=== PATIENT | female | born 1990 | race Caucasian/White ===

== ENCOUNTER 2018-09-20 19:13 | Emergency (ER) | payer MEDICAID ==
[~2018-09-20] VITALS: Ht 157.5 cm; Wt 99.8 kg
[2018-09-20 19:44] VITALS: BP_SYST 155
[2018-09-20 20:12] LABS: BILIRUBIN,URINE NEGATIVE (NEGATIVE); BLOOD, URINE 1+ (NEGATIVE); CLARITY/URINE CLEAR (CLEAR); COLOR,URINE YELLOW (YELLOW); GLUCOSE,URINE NEGATIVE (NEGATIVE); KETONES,URINE NEGATIVE (NEGATIVE); LEUKOCYTE ESTERASE ,URINE NEGATIVE (NEGATIVE); NITRITE, URINE NEGATIVE (NEGATIVE); PH,URINE 6.5 (5.0-8.0); PROTEIN URINE NEGATIVE (NEGATIVE); UROBILINOGEN,URINE 0.2 (0.2-1.0)
[2018-09-20 20:18] LABS: BASOPHILS % (AUTO) 0.3 % (0.0-2.0); EOSINOPHILS # (AUTO) 0.2 K/uL (0.0-0.4); EOSINOPHILS % (AUTO) 1.7 % (0.0-4.0); HEMATOCRIT 39.7 % (36-48); HEMOGLOBIN 13.4 g/dL (12.0-16.0); MEAN CORPUSCULAR HEMOGLOBIN 30 pg (27-31); MEAN CORPUSCULAR HGB CONC 34 % (32-36); MEAN CORPUSCULAR VOLUME 89 fL (79.0-98.0); MONOCYTES # (AUTO) 0.5 K/uL (0.0-1.0); MONOCYTES % (AUTO) 5.1 % (1.7-9.3); NEUTROPHILS # (AUTO) 6.2 K/uL (1.8-7.7); NEUTROPHILS % (AUTO) 62.9 % (40.0-70.0); PLATELET COUNT (AUTO) 335 K/uL (130-430); RED BLOOD CELL COUNT(AUTO) 4.48 MIL/uL (4.2-6.2); RED CELL DISTRIBUTION WIDTH 12.1 % (9.0-15.0); WHITE BLOOD COUNT (AUTO) 9.9 K/uL (4.8-10.8)
[2018-09-20 20:24] LABS: CALCIUM 8.8 mg/dL (8.4-11.0); CREATININE 0.74 mg/dL (0.55-1.30); POTASSIUM 3.4 mmol/L (3.5-5.1)
[2018-09-20 20:26] LABS: BACTERIA,URINE RARE /HPF (None Seen); MUCUS,URINE None Seen /LPF (None Seen); RBC,URINE 0-3 /HPF (0-3); WBC,URINE 0-3 /HPF (0-3)
[2018-09-20 20:34] LABS: TOTAL BILIRUBIN 0.4 mg/dL (0.0-1.0)
[2018-09-20 20:35] LABS: ALBUMIN 3.6 g/dL (3.4-4.8)
[2018-09-20 22:04] VITALS: BP_SYST 146
== END 2018-09-20 22:04 | disposition home or self-care (01) ==
LOC: SED 19:13
DX: O20.0 Threatened abortion (principal); Z3A.01 Less than 8 weeks gestation of pregnancy
CPT/HCPCS: 36415; 76830-TC; 76857; 80053; 81000-TC; 81025; 84702-TC; 85025; 86900; 86901; 99284

== ENCOUNTER 2018-09-22 10:26 | Emergency (ER) | payer MEDICAID ==
[~2018-09-22] VITALS: Ht 157.5 cm; Wt 99.8 kg
[2018-09-22 10:43] VITALS: BP_SYST 145
--- NOTE | 2018-09-22 10:48 | NUR ---
Patient triaged and placed in waiting room. VSS and patient appears in no acute distress at this time. Accompanied by significant other, awaiting available bed, and MD notified of need for MSE.
--- NOTE | 2018-09-22 10:48 | NUR ---
Pt was seen here 2 days ago for possible miscarrage. HCG quant was 319. Advised to follow up with OBGYN to re-check lab. States that she knows that she is miscarrying because she bleed last night and passed clots. Has had miscarriage in the past. Denies abd pain, denies n/v, denies dizziness. VSS
--- NOTE | 2018-09-22 11:57 | NUR ---
BROUGHT BACK TO [facility] BED AND DR MURO SPEAKING WITH PT.
[2018-09-22 12:08] VITALS: BP_SYST 132
--- NOTE | 2018-09-22 12:09 | NUR ---
Patient given written and verbal discharge instructions and verbalizes understanding. ER MD discussed with patient the results and treatment provided. Patient in stable condition. ID arm band removed. Rx of NONE given. Patient educated on pain management and to follow up with PMD. Pain Scale 0/10. Opportunity for questions provided and answered. Medication side effect fact sheet provided.
== END 2018-09-22 12:08 | disposition home or self-care (01) ==
LOC: SED 10:26
DX: O03.4 Incomplete spontaneous abortion without complication (principal); R03.0 Elevated blood-pressure reading, without diagnosis of hypertension; Z3A.01 Less than 8 weeks gestation of pregnancy
CPT/HCPCS: 36415; 84702-TC; 99283

== ENCOUNTER 2018-10-02 18:17 | Emergency (ER) | payer MEDICAID ==
[~2018-10-02] VITALS: Ht 160 cm; Wt 104.3 kg
[2018-10-02 18:28] VITALS: BP_SYST 125
--- NOTE | 2018-10-02 20:10 | NUR ---
Pt ambulatory to chair 1 for evaluation
--- NOTE | 2018-10-02 20:30 | NUR ---
Sly mosqueda in ED - 10/03/18 at 0321 by [email or web address] MARGA Mireles at bedside examining patient.
--- NOTE | 2018-10-02 20:40 | NUR ---
Pt came back to the ED for a productive cough with fever, nausea and muscle aches a few days ago. Pt was prescribed Augmentin at urgent care which has not given any relief. Denies chills, vomiting, diarrhea, SOB. No other complaints/injuries noted. Will cont. to monitor.
--- NOTE | 2018-10-02 20:49 | NUR ---
PT taken to radiology
[2018-10-02 21:22] LABS: CALCIUM 8.8 mg/dL (8.4-11.0); CREATININE 0.81 mg/dL (0.55-1.30); POTASSIUM 4.2 mmol/L (3.5-5.1)
[2018-10-02 21:26] LABS: HEMATOCRIT 42.6 % (36-48); HEMOGLOBIN 14.4 g/dL (12.0-16.0); MEAN CORPUSCULAR HEMOGLOBIN 31 pg (27-31); MEAN CORPUSCULAR HGB CONC 34 % (32-36); MEAN CORPUSCULAR VOLUME 91 fL (79.0-98.0); RED BLOOD CELL COUNT(AUTO) 4.67 MIL/uL (4.2-6.2); WHITE BLOOD COUNT (AUTO) 11.1 K/uL (4.8-10.8)
[2018-10-02 21:27] LABS: BASOPHILS # (AUTO) 0.1 K/uL (0.0-0.2); BASOPHILS % (AUTO) 0.9 % (0.0-2.0); EOSINOPHILS # (AUTO) 0.1 K/uL (0.0-0.4); EOSINOPHILS % (AUTO) 0.8 % (0.0-4.0); LYMPHOCYTES # (AUTO) 1.2 K/uL (1.0-5.5); LYMPHOCYTES % (AUTO) 11.1 % (20.5-51.5); MONOCYTES # (AUTO) 0.3 K/uL (0.0-1.0); MONOCYTES % (AUTO) 2.8 % (1.7-9.3); NEUTROPHILS # (AUTO) 9.4 K/uL (1.8-7.7); NEUTROPHILS % (AUTO) 84.4 % (40.0-70.0); PLATELET COUNT (AUTO) 337 K/uL (130-430); RED CELL DISTRIBUTION WIDTH 12.2 % (9.0-15.0)
[2018-10-02 21:32] LABS: TOTAL BILIRUBIN 0.8 mg/dL (0.0-1.0)
[2018-10-02 21:33] LABS: ALBUMIN 3.4 g/dL (3.4-4.8)
[2018-10-02 22:40] VITALS: BP_SYST 125
--- NOTE | 2018-10-02 22:40 | NUR ---
Patient given written and verbal discharge instructions and verbalizes understanding. Dr. Oliveira discussed with patient the results and treatment provided. Patient in stable condition. ID arm band removed. Rx of zithromax given. Patient educated on pain management and to follow up with PMD w/in 2-3 days. Pain Scale 0/10. Opportunity for questions provided and answered. Medication side effect fact sheet provided.
== END 2018-10-02 22:40 | disposition home or self-care (01) ==
LOC: SED 18:17
DX: J40 Bronchitis, not specified as acute or chronic (principal)
CPT/HCPCS: 36415; 71046-TC; 80053; 84702-TC; 85025; 86710; 99284

== ENCOUNTER 2019-08-11 15:57 | Emergency (ER) | payer MEDICAID ==
[~2019-08-11] VITALS: Ht 160 cm; Wt 109.8 kg
[2019-08-11 16:03] VITALS: BP_SYST 121
[2019-08-11 16:41] LABS: BASOPHILS # (AUTO) 0.1 K/uL (0.0-0.2); BASOPHILS % (AUTO) 0.6 % (0.0-2.0); EOSINOPHILS # (AUTO) 0.1 K/uL (0.0-0.4); EOSINOPHILS % (AUTO) 1.3 % (0.0-4.0); HEMATOCRIT 39.4 % (36-48); HEMOGLOBIN 13.4 g/dL (12.0-16.0); LYMPHOCYTES # (AUTO) 2.6 K/uL (1.0-5.5); LYMPHOCYTES % (AUTO) 24.3 % (20.5-51.5); MEAN CORPUSCULAR HEMOGLOBIN 32 pg (27-31); MEAN CORPUSCULAR HGB CONC 34 % (32-36); MEAN CORPUSCULAR VOLUME 93 fL (79.0-98.0); MONOCYTES # (AUTO) 0.6 K/uL (0.0-1.0); MONOCYTES % (AUTO) 5.1 % (1.7-9.3); NEUTROPHILS # (AUTO) 7.5 K/uL (1.8-7.7); NEUTROPHILS % (AUTO) 68.7 % (40.0-70.0); PLATELET COUNT (AUTO) 330 K/uL (130-430); RED BLOOD CELL COUNT(AUTO) 4.24 MIL/uL (4.2-6.2); RED CELL DISTRIBUTION WIDTH 13.9 % (9.0-15.0); WHITE BLOOD COUNT (AUTO) 10.9 K/uL (4.8-10.8)
[2019-08-11 16:48] LABS: CALCIUM 8.5 mg/dL (8.4-11.0); CREATININE 0.82 mg/dL (0.55-1.30); POTASSIUM 3.8 mmol/L (3.5-5.1)
[2019-08-11 16:52] LABS: TOTAL BILIRUBIN 0.4 mg/dL (0.0-1.0)
[2019-08-11 16:53] LABS: INR 0.9 (0.8-1.2); PROTHROMBIN TIME 9.3 SECS (9.5-12.5)
[2019-08-11 17:21] VITALS: BP_SYST 118
== END 2019-08-11 17:21 | disposition home or self-care (01) ==
LOC: SED 15:57
DX: O72.1 Other immediate postpartum hemorrhage (principal)
CPT/HCPCS: 36415; 80053; 84703; 85025; 85610-TC; 85730-TC; 99283